=== PATIENT | female | born 1965 | race Caucasian/White ===

== ENCOUNTER 2018-09-16 17:02 | Emergency (ER) | payer OTHER ==
[~2018-09-16] VITALS: Ht 162.6 cm; Wt 120.2 kg
[~2018-09-16 17:02] MED LIST: LEVO500T59 PO; LISI2.5T PO; METF10007 PO; METF500T16 PO; OXYC1TAB15 PO
[2018-09-16 17:08] VITALS: BP 171/76
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
[2018-09-16] MEDS: HYDROcodone/APAP 5/325MG 1 TAB TABLET PO ONE (17:43)
[2018-09-16] MEDS: CYCLOBENZAPRINE 10 MG TABLET. PO ONE (17:44)
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
[2018-09-16] MEDS ORDERED: CYCL10TA2 PO (18:45)
[2018-09-16] MEDS ORDERED: DICL50TA2 PO (18:45)
== END 2018-09-16 18:52 | disposition home or self-care (01) ==
LOC: ER 17:02
DX: S13.8XXA Sprain of joints and ligaments of other parts of neck, initial encounter (principal); R51 Headache; E11.9 Type 2 diabetes mellitus without complications; F41.9 Anxiety disorder, unspecified; I10 Essential (primary) hypertension; Z90.49 Acquired absence of other specified parts of digestive tract; Z90.89 Acquired absence of other organs; Z88.5 Allergy status to narcotic agent; Z88.8 Allergy status to other drugs, medicaments and biological substances; Z91.041 Radiographic dye allergy status; V43.52XA Car driver injured in collision with other type car in traffic accident, initial encounter; Y93.89 Activity, other specified; Y92.410 Unspecified street and highway as the place of occurrence of the external cause; Y99.8 Other external cause status
CPT/HCPCS: 70450; 72125; 99284

== ENCOUNTER 2018-12-07 13:11 | Emergency (ER) | payer OTHER, SELFPAY ==
[~2018-12-07] VITALS: Ht 162.6 cm; Wt 116.1 kg
[~2018-12-07 13:11] MED LIST changes: +CYCL10TA2 PO; +DICL50TA2 PO
[2018-12-07 13:15] VITALS: BP 176/76
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
[2018-12-07] MEDS ORDERED: LIDOCAINE 1% Multi-Dose 20 ML VIAL. IJ ONE (14:00)
[2018-12-07] MEDS ORDERED: SILVER NITRATE STICK TP ONE ×3 (14:00→14:15)
[2018-12-07] MEDS ORDERED: LIDOCAINE 1% Multi-Dose 20 ML VIAL. ONE (14:03)
== END 2018-12-07 14:59 | disposition home or self-care (01) ==
LOC: ER 13:11
DX: L03.032 Cellulitis of left toe (principal); L60.0 Ingrowing nail; F41.9 Anxiety disorder, unspecified; E11.9 Type 2 diabetes mellitus without complications; I10 Essential (primary) hypertension; Z90.89 Acquired absence of other organs; Z90.49 Acquired absence of other specified parts of digestive tract; Z88.8 Allergy status to other drugs, medicaments and biological substances; Z88.5 Allergy status to narcotic agent; Z91.041 Radiographic dye allergy status
CPT/HCPCS: 11730; 82962; 99283

== ENCOUNTER 2019-06-27 16:19 | Emergency (ER) | payer SELFPAY ==
[~2019-06-27] VITALS: Ht 162.6 cm; Wt 122.5 kg
[2019-06-27] MEDS ORDERED: IPRATRPIUM/ALBUTEROL 0.5/2.5MG 3 ML NEBU. NEB STA (17:54)
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
[2019-06-27] MEDS ORDERED: IV NORMAL SALINE 1000ML BAG 1,000 ML IV ONE (18:00)
[2019-06-27] MEDS ORDERED: ONDANSETRON PF 4 MG/2 ML VIAL. IV ONE (18:00)
[2019-06-27 19:02] LABS: BASO # 0.1 x10^3/uL (0.0-0.2); BASO % 1 % (0-3); EOS # 0.1 x10^3/uL (0.0-0.7); EOS % 1 % (0-3); HEMATOCRIT 35.6 % (36.0-47.0); HEMOGLOBIN 11.5 g/dL (12.0-15.5); LYMPH # 2.9 x10^3/uL (1.0-4.8); LYMPH % 22 % (24-48); MEAN CORPUSCULAR HEMOGLOBIN 25 pg (25-35); MEAN CORPUSCULAR HGB CONC 32 g/dL (31-37); MEAN CORPUSCULAR VOLUME 77 fL (79-100); MONO # 0.6 x10^3/uL (0.0-1.1); MONO % 5 % (0-9); NEUT # 9.2 x10^3/uL (1.8-7.7); NEUT % 71 % (31-73); PLATELET COUNT 380 x10^3/uL (140-400); RED BLOOD COUNT 4.62 x10^6/uL (3.50-5.40); RED CELL DISTRIBUTION WIDTH 14.2 % (11.5-14.5); WHITE BLOOD COUNT 12.9 x10^3/uL (4.0-11.0)
[2019-06-27 19:14] LABS: CALCIUM 9.5 mg/dL (8.5-10.1); CREATININE 1.3 mg/dL (0.6-1.0)
[2019-06-27 19:20] LABS: ALBUMIN 3.3 g/dL (3.4-5.0); ALBUMIN/GLOBULIN RATIO 0.6 (1.0-1.7); TOTAL BILIRUBIN 0.3 mg/dL (0.2-1.0); TOTAL PROTEIN 8.4 g/dL (6.4-8.2)
[2019-06-27 19:31] VITALS: BP 150/78
--- NOTE | 2019-06-27 19:33 | RAD ---
CHEST PA LATERAL INDICATION: Cough, fever, congestion. COMPARISON STUDY: 10/08/2015. FINDINGS: Lungs: Low lung volume. Mild retrocardiac opacities. The tracheobronchial tree and hilar structures are normal. Pleura: No pleural effusion or pneumothorax. Heart and Mediastinum: Stable cardiomediastinal silhouette and great vessels Bones and Soft Tissues: Degenerative changes of the spine. IMPRESSION: Mild retrocardiac opacities, which could represent subsegmental atelectasis versus a developing infectious/inflammatory process. Electronically signed by: Waldemar Vasques MD (06/27/2019 7:30 PM) [facility]
[2019-06-27] MEDS ORDERED: cefTRIAXone IV Push 1 GM VIAL. IVP STA (20:10)
[2019-06-27] MEDS ORDERED: DOXY100C2 PO (20:28)
[2019-06-27] MEDS ORDERED: INSULIN REGULAR 100 UNIT/ML 3ML VIAL. IV STA (20:28)
== END 2019-06-27 21:12 | disposition left against medical advice (07) ==
LOC: ER 16:19
DX: N17.9 Acute kidney failure, unspecified (principal); E11.65 Type 2 diabetes mellitus with hyperglycemia; J18.9 Pneumonia, unspecified organism; I10 Essential (primary) hypertension; Z79.4 Long term (current) use of insulin; F41.9 Anxiety disorder, unspecified; Z90.89 Acquired absence of other organs; Z90.49 Acquired absence of other specified parts of digestive tract; Z98.890 Other specified postprocedural states; Z88.5 Allergy status to narcotic agent; Z91.041 Radiographic dye allergy status; Z88.8 Allergy status to other drugs, medicaments and biological substances
CPT/HCPCS: 36415; 71046; 80053; 82010; 82962; 84145; 85025; 94640; 96361; 96374; 96375; 99285; J0696; J1815; J2405; J7030; J7620

== ENCOUNTER 2021-06-02 07:28 | Inpatient (IN) | payer SELFPAY ==
[~2021-06-02] VITALS: Ht 162.6 cm; Wt 110.2 kg
[~2021-06-02 07:28] MED LIST changes: +CYCL10TA19 PO; -CYCL10TA2 PO; +DOXY100C3 PO; -LISI2.5T PO; +LISI2.5T12 PO
--- NOTE | 2021-06-02 08:13 | PHYS DOC ---
Past Medical History Past Medical History: Anxiety, Diabetes-Type II, Hypertension, Other Additional Past Medical Histor: HERNIA Past Surgical History: Appendectomy, Cholecystectomy, Other Additional Past Surgical Histo: R SHOULDER TUMOR REMOVAL, hernia repair Smoking Status: Never Smoker Alcohol Use: None Drug Use: None General Adult EDM: Chief Complaint: ABDOMINAL PAIN HPI: HPI: Patient is a 55 year old female with history of ventral hernia s/p multiple surgeries with mesh and mesh removal who presents with pain over her hernia site just to the left of her umbilicus. States that she began having nausea and vomiting on Thursday of this week. On Thursday, she noted that her hernia was getting to be more painful. On she noticed that the skin overlying the hernia became red. It is getting to the point that she cannot wear pants over the area, because it is too tender. She states that she began having chills last night. No urinary symptoms. Normal bowel movement last night. Last p.o. intake at 7 AM with clear liquids. Last solid intake was > 8 hours ago. Previous surgeries were done by Dr. Meyers at [facility]. Review of Systems: Review of Systems: Constitutional: Denies fever or chills. [] Eyes: Denies change in visual acuity. [] HENT: Denies nasal congestion or sore throat. [] Respiratory: Denies cough or shortness of breath. [] Cardiovascular: Denies chest pain or edema. [] GI: Ports hernia, and severe abdominal pain, nausea, vomiting. Denies bloody stools or diarrhea. [] : Denies dysuria. [] Musculoskeletal: Denies back pain or joint pain. [] Integument: Redness and swelling over her hernia. Neurologic: Denies headache, focal weakness or sensory changes. [] Endocrine: Denies polyuria or polydipsia. [] Lymphatic: Denies swollen glands. [] Psychiatric: Denies depression or anxiety. [] Heart Score: C/O Chest Pain: No Allergies: Allergies: Allergies Coded Allergies Type Severity Reaction Last Updated Verified adhesive tape Allergy Intermediate "skin bubbles up" per patient 04/18/15 Yes I S O L A T I O N *CONTACT* Allergy Unknown 04/16/16 Yes codeine Adverse Reaction Intermediate jitters 04/19/15 Yes Physical Exam: PE: Constitutional: Appears uncomfortable, wincing in pain HENT: Normocephalic, atraumatic, Eyes: conjunctiva normal, no discharge. [] Neck: Normal range of motion, no tenderness, supple, no stridor. [] Cardiovascular:Heart rate regular rhythm, no murmur [] Lungs & Thorax: Bilateral breath sounds clear to auscultation [] Abdomen: Surgical scar in the midline around the umbilicus, to the left of this is a large ventral hernia. Skin is indurated with peau d'orange orange appearance. equisitely tender locally in this area. Hernia is non-reducible after multiple attempt in Trendelenburg position. The remainder of the abdomen is nontender. Skin: See abdominal exam, otherwise warm, dry. Back: No tenderness, no CVA tenderness. [] Extremities: No tenderness, no cyanosis, no clubbing, ROM intact, no edema. [] Neurologic: Alert and oriented X 3, normal motor function, normal sensory function, no focal deficits noted. [] Psychologic: Affect normal, judgement normal, mood normal. [] EKG: EKG: [] Radiology/Procedures: Radiology/Procedures: [] Impression: [facility] [address] [place] [address] IMAGING REPORT Signed PATIENT: NOA JOSEPH ACCOUNT: [id number] : 1965 LOCATION: ER AGE: 55 SEX: F EXAM STATUS: REG ER ORD. PHYSICIAN: PAUL MANNING MD REASON: incarcerated ventral hernia PROCEDURE: CT ABD PELV W/ IV CONTRST ONLY CT abdomen pelvis with contrast. HISTORY: Incarcerated ventral hernia CT abdomen pelvis was done using 75 mL Omnipaque 370 contrast. Comparison is made with an old study from April 2015. Lung bases are clear except for mild atelectasis. There is no effusion. There is spondylolysis at L5 with spondylol isthesis. Liver is normal in appearance. Patient's had a cholecystectomy. Spleen is unremarkable. Adrenal glands are normal. Pancreas is normal. There is no mass or hydronephrosis in the left kidney. There is a large staghorn calculus in the right kidney. There are dilated calyces in the cortex of the right kidney more prominent than on the old study. There is no aortic aneurysm. There is a large anterior abdominal wall hernia containing bowel loops. There is no obstruction. There is fluid collection in the subcutaneous tissues at the margin of the hernia suggesting an abscess measuring 10 x 6 x 8 cm. Uterus is enlarged with multiple leiomyomas some which are are slightly calcified. Ovaries are unremarkable. There is no retroperitoneal adenopathy. IMPRESSION: 1. Large anterior abdominal wall hernia. 2. Subcutaneous abscess or seroma at the margin of the hernia. 3. Large uterus with leiomyoma. 4. 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 5. Large staghorn calculus with dilated calyces in the right kidney PQRS Compliance Statement: One or more of the following individualized dose reduction techniques were utilized for this examination: 1. Automated exposure control 2. Adjustment of the mA and/or kV according to patient size 3. Use of iterative reconstruction technique Electronically signed by: Jeronimo Odell MD (06/02/2021 11:29 AM) [facility] DICTATED and SIGNED BY: JERONIMO ODELL MD DATE: 06/02/21 [id number] 0 Course & Med Decision Making: Course & Med Decision Making Pertinent Labs and Imaging studies reviewed. (See chart for details) Patient 55-year-old female with history of complicated ventral hernia s/p multiple surgeries who presents with local pain of the hernia, nausea, vomiting, overlying redness and swelling of the skin. Hernia is incarcerated on exam, with overlying peau d'orange appearance of the skin. Mutiple attempts at reduction unsuccesful. Will evaluate further with CT abd/pelvis and labs including lactate. fluids, antiemetics, analgesia provided. [id number] WBC elevated[address] CT shows concern for an abscess at the margin of the ventral hernia. Given the clinical picture I think this is much more likely to represent an abscess then seroma. Zosyn ordered. General surgery will be consulted. Feel she will require mission in the hospital for IV antibiotics and surgery consultation. [id number] Disclaimer: [place] Disclaimer: This electronic medical record was generated, in whole or in part, using a voice recognition dictation system. Departure Departure Impression: Primary Impression: Abdominal abscess Additional Impression: Ventral hernia Disposition: ADMITTED INPATIENT Admitting Physician: ISIDRO Still) Condition: STABLE Referrals: NO PCP (PCP) PAUL MANNING MD Jun 02, 2021 08:13
[2021-06-02] MEDS ORDERED: MORPHINE SULFATE 4 MG/ML INJ. IVP ONE (08:15)
[2021-06-02] MEDS ORDERED: IV NORMAL SALINE 1000ML BAG 1,000 ML IV ONE (08:15)
[2021-06-02] MEDS ORDERED: ONDANSETRON PF 4 MG/2 ML VIAL. IVP ONE (08:15)
[2021-06-02 08:16] LABS: BILIRUBIN,URINE NEGATIVE (NEG); CLARITY,URINE CLOUDY; COLOR,URINE YELLOW; NITRITE,URINE NEGATIVE (NEG); PROTEIN,URINE 30 mg/dL (NEG-TRACE); UROBILINOGEN,URINE 0.2 mg/dL (0.2 mg/dL)
[2021-06-02 08:28] LABS: BASO # 0.1 x10^3/uL (0.0-0.2); BASO % 1 % (0-3); EOS # 0.1 x10^3/uL (0.0-0.7); EOS % 1 % (0-3); HEMATOCRIT 35.6 % (36.0-47.0); HEMOGLOBIN 11.5 g/dL (12.0-15.5); LYMPH # 1.7 x10^3/uL (1.0-4.8); LYMPH % 13 % (24-48); MEAN CORPUSCULAR HEMOGLOBIN 25 pg (25-35); MEAN CORPUSCULAR HGB CONC 33 g/dL (31-37); MEAN CORPUSCULAR VOLUME 77 fL (79-100); MONO # 0.9 x10^3/uL (0.0-1.1); MONO % 7 % (0-9); NEUT # 10.3 x10^3/uL (1.8-7.7); NEUT % 78 % (31-73); PLATELET COUNT 422 x10^3/uL (140-400); WHITE BLOOD COUNT 13.2 x10^3/uL (4.0-11.0)
[2021-06-02 08:36] LABS: BACTERIA,URINE MOD /HPF (0-FEW)
[2021-06-02 08:38] LABS: YEAST,URINE PRESENT /HPF
[2021-06-02 08:40] LABS: CALCIUM 8.8 mg/dL (8.5-10.1); CREATININE 0.9 mg/dL (0.6-1.0); GFR 65.2; POTASSIUM 4.1 mmol/L (3.5-5.1)
[2021-06-02 08:54] LABS: ALBUMIN 2.2 g/dL (3.4-5.0); ALBUMIN/GLOBULIN RATIO 0.4 (1.0-1.7); TOTAL BILIRUBIN 0.4 mg/dL (0.2-1.0); TOTAL PROTEIN 7.1 g/dL (6.4-8.2)
[2021-06-02] MEDS ORDERED: IOHEXOL 300 MG/ML 100ML VIAL. IV ONE (10:45)
--- NOTE | 2021-06-02 11:32 | RAD ---
CT abdomen pelvis with contrast. HISTORY: Incarcerated ventral hernia CT abdomen pelvis was done using 75 mL Omnipaque 370 contrast. Comparison is made with an old study f rom April 2015. Lung bases are clear except for mild atelectasis. There is no effusion. There is spondylolysis at L5 with spondylolisthesis. Liver is normal in appearance. Patient's had a cholecyste ctomy. Spleen is unremarkable. Adrenal glands are normal. Pancreas is normal. There is no mass or hyd ronephrosis in the left kidney. There is a large staghorn calculus in the right kidney. There are dil ated calyces in the cortex of the right kidney more prominent than on the old study. There is no aort ic aneurysm. There is a large anterior abdominal wall hernia containing bowel loops. There is no obst ruction. There is fluid collection in the subcutaneous tissues at the margin of the hernia suggesting an abscess measuring 10 x 6 x 8 cm. Uterus is enlarged with multiple leiomyomas some which are are s lightly calcified. Ovaries are unremarkable. There is no retroperitoneal adenopathy. IMPRESSION: 1. Large anterior abdominal wall hernia. 2. Subcutaneous abscess or seroma at the margin of the hernia. 3. Large uterus with leiomyoma. 4. 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 5. Large staghorn calculus with dilated calyces in the right kidney PQRS Compliance Statement: One or more of the following individualized dose reduction techniques were utilized for this examinat ion: 1. Automated exposure control 2. Adjustment of the mA and/or kV according to patient size 3. Use of iterative reconstruction technique Electronically signed by: Jeronimo Odell MD (06/02/2021 11:29 AM) [facility]
[2021-06-02] MEDS ORDERED: PIPERACILLIN/TAZOBACTAM 4.5 GM in IV NORMAL SALINE 100ML 100 ML IV ONE (12:00)
[2021-06-02] MEDS ORDERED: ONDANSETRON PF 4 MG/2 ML VIAL. IVP PRN ×2 (12:15→13:30)
[2021-06-02] MEDS ORDERED: MORPHINE SULFATE 4 MG/ML INJ. IVP PRN (12:15)
[2021-06-02] MEDS ORDERED: ZOLPIDEM 5 MG TABLET. PO PRN (13:30)
[2021-06-02] MEDS ORDERED: oxyCODONE/APAP 5/325 1 TAB TABLET PO PRN (13:30)
[2021-06-02] MEDS ORDERED: oxyCODONE IR 5 MG TABLET PO PRN (13:30)
[2021-06-02] MEDS ORDERED: ELECTROLYTE (NON-ICU) PROTOCOL. MC PRN (13:30)
[2021-06-02] MEDS ORDERED: PIP/TAZO PER PHARMACY MC PRN (13:30)
[2021-06-02] MEDS ORDERED: ACETAMINOPHEN 325 MG TABLET. PO PRN (13:30)
[2021-06-02] MEDS ORDERED: CALCIUM CARBONATE 500 MG TAB.CHEW PO PRN (13:30)
[2021-06-02] MEDS ORDERED: DEXTROSE 50% 25 GM / 50ML DISP.SYRIN. IV PRN (13:45)
--- NOTE | 2021-06-02 13:47 | PDOC1 ---
History and Physical Date of Service: DOS: DATE: 06/02/21 TIME: 13:36 Chief Complaint: Problems: (1) Abdominal abscess (2) Ventral hernia Chief Complain: abdominal pain History of Present Illness: HPI: This patient is a 55-year-old female presented the emergency room today due to pain over her previous hernia surgical site. Reports that she started having increased nausea vomiting earlier this week. Also noticed that her hernia site was getting more painful and on the skin started becoming red. Is also gotten much more swollen according to her. Says she is unable to button her jeans due to the swelling. Patient had an initial cholecystectomy and hernia repair many years ago here looks like it may have been in 2015. She said she had multiple hernia surgeries that required mesh. Has had a handful done at according to her. Says last one was about 3 years ago where the mesh was completely removed. Has had no problems with the site until today. CT scan showing a large abdominal wall hernia. Also underlying abscess versus seroma. Surgery consulted in emergency room. Past Medical/Surgical History: PMH/PSH: Hypertension, diabetes Allergies: Allergies: Coded Allergies: adhesive tape (Verified Allergy, Intermediate, "skin bubbles up" per patient, 04/18/15) I S O L A T I O N *CONTACT* (Verified Allergy, Unknown, 04/16/16) mrsa + codeine (Verified Adverse Reaction, Intermediate, jitters, 04/19/15) Family History: Family History: Patient reports family history diabetes Social History: Social History: Denies alcohol tobacco drug use Current Medications: Current Medications Current Medications Sodium Chloride 1,000 ml @ 1,000 mls/hr 1X ONCE IV Last administered on 1 at 08:57; Start 06/02/21 at 08:15; Stop 06/02/21 at 09:14; Status DC Morphine Sulfate (Morphine Sulfate) 4 mg 1X ONCE IVP Last administered on 06/02/21at 08:57; Start 06/02/21 at 08:15; Stop 06/02/21 at 08:16; Status DC Ondansetron HCl (Zofran) 4 mg 1X ONCE IVP Last administered on 06/02/21at 08:57; Start 06/02/21 at 08:15; Stop 06/02/21 at 08:16; Status DC Iohexol (Omnipaque 300 Mg/ml) 75 ml 1X ONCE IV Last administered on 06/02/21at 10:45; Start 06/02/21 at 10:45; Stop 06/02/21 at 10:48; Status DC Piperacillin Sod/ Tazobactam Sod 4.5 gm/Sodium Chloride 100 ml @ 200 mls/hr 1X ONCE IV Last administered on 06/02/21at 12:08; Start 06/02/21 at 12:00; Stop 06/02/21 at 12:29; Status DC Ondansetron HCl (Zofran) 4 mg PRN Q8HRS PRN IVP NAUSEA/VOMITING; Start 06/02/21 at 12:15; Stop 06/03/21 at 12:14 Morphine Sulfate (Morphine Sulfate) 4 mg PRN Q2HR PRN IVP PAIN; Start 06/02/21 at 12:15; Stop 06/03/21 at 12:14 Active Scripts Active Doxycycline Hyclate 100 Mg Capsule 1 Cap PO BID 10 Days Cyclobenzaprine Hcl 10 Mg Tablet 1 Tab PO TID Diclofenac Potassium 50 Mg Tablet 1 Tab PO BID Metformin Hcl 1,000 Mg Tablet 1 Tab PO BID Reported Levaquin (Levofloxacin) 500 Mg Tablet 1 Tab PO DAILY Lisinopril 2.5 Mg Tablet 1 Tab PO DAILY ROS: Review of Systems Review of System Unless noted in HPI 14 point review of systems was negative Physical Exam: Vital Signs: Vital Signs Date Time Temp Pulse Resp B/P (MAP) Pulse Ox O2 Delivery O2 Flow Rate FiO2 06/02/21 12:44 82 22 129/60 (83) 97 Room Air 06/02/21 07:50 98.5 98.5 Physcial Exam: GEN: No apparent distress. Alert and oriented HEENT: Normal cephalic, atraumatic, external auditory canals are patent EYES: Extraocular muscles are intact, pupil are equally round and reactive to light and accommodation MUSCULOSKELETAL: Well developed , well nourished, good range of motion ENDOCRINE: No thyromegaly was palpated LYMPHATICS: No cervical chain or axillary nodes were noted HEMATOPOIETIC: No bruising NECK: Supple, no JVD, no thyromegaly was noted LUNGS: Clear to auscultation in all lung alcazar without rhonchi or wheezing HEART: RRR, S1, S2 present. Peripheral pulses intact, no obvious murmurs noted ABDOMEN: Patient abdomen and very hard around umbilicus suspect this is scar tissue. There is also some erythema overlying where she is previous operation was performed. Tender to palpation throughout EXTREMITIES: Without clubbing, cyanosis, or edema. Pedal pulses intact. NEUROLOGIC: Normal speech and tone. A&O x 3, moves all extremities, no obvious focal deficits PSYCHIATRIC: Normal affect, normal mood. Stable SKIN: No ulcerations or rashes, good skin turgor, no jaundice VASCULAR: Good capillary refill, neurovascular bundle appears to be intact Labs: Labs: Laboratory Tests Test 06/02/21 07:50 06/02/21 08:16 Urine Collection Type Void Urine Color Yellow Urine Clarity Cloudy Urine pH 5.0 (<5.0-8.0) Urine Specific [place] >=1.030 (1.000-1.030) Urine Protein 30 mg/dL (NEG-TRACE) Urine Glucose (UA) >=1000 mg/dL (NEG) Urine Ketones (Stick) Negative mg/dL (NEG) Urine Blood Large (NEG) Urine Nitrite Negative (NEG) Urine Bilirubin Negative (NEG) Urine Urobilinogen Dipstick 0.2 mg/dL (0.2 mg/dL) Urine Leukocyte Esterase Moderate (NEG) Urine RBC 6-10 /HPF (0-2) Urine WBC 11-20 /HPF (0-4) Urine Squamous Epithelial Cells Mod /LPF Urine Bacteria Mod /HPF (0-FEW) Urine Yeast Present /HPF White Blood Count 13.2 x10^3/uL (4.0-11.0) Red Blood Count 4.60 x10^6/uL (3.50-5.40) Hemoglobin 11.5 g/dL (12.0-15.5) Hematocrit 35.6 % (36.0-47.0) Mean Corpuscular Volume 77 fL (79-100) Mean Corpuscular Hemoglobin 25 pg (25-35) Mean Corpuscular Hemoglobin Concent 33 g/dL (31-37) Red Cell Distribution Width 15.0 % (11.5-14.5) Platelet Count 422 x10^3/uL (140-400) Neutrophils (%) (Auto) 78 % (31-73) Lymphocytes (%) (Auto) 13 % (24-48) Monocytes (%) (Auto) 7 % (0-9) Eosinophils (%) (Auto) 1 % (0-3) Basophils (%) (Auto) 1 % (0-3) Neutrophils # (Auto) 10.3 x10^3/uL (1.8-7.7) Lymphocytes # (Auto) 1.7 x10^3/uL (1.0-4.8) Monocytes # (Auto) 0.9 x10^3/uL (0.0-1.1) Eosinophils # (Auto) 0.1 x10^3/uL (0.0-0.7) Basophils # (Auto) 0.1 x10^3/uL (0.0-0.2) Sodium Level 130 mmol/L (136-145) Potassium Level 4.1 mmol/L (3.5-5.1) Chloride Level 95 mmol/L (98-107) Carbon Dioxide Level 25 mmol/L (21-32) Anion Gap 10 (6-14) Blood Urea Nitrogen 16 mg/dL (7-20) Creatinine 0.9 mg/dL (0.6-1.0) Estimated GFR (Cockcroft-Gault) 65.2 BUN/Creatinine Ratio 18 (6-20) Glucose Level 435 mg/dL (70-99) Lactic Acid Level 1.2 mmol/L (0.4-2.0) Calcium Level 8.8 mg/dL (8.5-10.1) Total Bilirubin 0.4 mg/dL (0.2-1.0) Aspartate Amino Transf (AST/SGOT) 13 U/L (15-37) Alanine Aminotransferase (ALT/SGPT) 21 U/L (14-59) Alkaline Phosphatase 121 U/L (46-116) Total Protein 7.1 g/dL (6.4-8.2) Albumin 2.2 g/dL (3.4-5.0) Albumin/Globulin Ratio 0.4 (1.0-1.7) Laboratory Tests Test 06/02/21 07:50 06/02/21 08:16 Urine Collection Type Void Urine Color Yellow Urine Clarity Cloudy Urine pH 5.0 (<5.0-8.0) Urine Specific [place] >=1.030 (1.000-1.030) Urine Protein 30 mg/dL (NEG-TRACE) Urine Glucose (UA) >=1000 mg/dL (NEG) Urine Ketones (Stick) Negative mg/dL (NEG) Urine Blood Large (NEG) Urine Nitrite Negative (NEG) Urine Bilirubin Negative (NEG) Urine Urobilinogen Dipstick 0.2 mg/dL (0.2 mg/dL) Urine Leukocyte Esterase Moderate (NEG) Urine RBC 6-10 /HPF (0-2) Urine WBC 11-20 /HPF (0-4) Urine Squamous Epithelial Cells Mod /LPF Urine Bacteria Mod /HPF (0-FEW) Urine Yeast Present /HPF White Blood Count 13.2 x10^3/uL (4.0-11.0) Red Blood Count 4.60 x10^6/uL (3.50-5.40) Hemoglobin 11.5 g/dL (12.0-15.5) Hematocrit 35.6 % (36.0-47.0) Mean Corpuscular Volume 77 fL (79-100) Mean Corpuscular Hemoglobin 25 pg (25-35) Mean Corpuscular Hemoglobin Concent 33 g/dL (31-37) Red Cell Distribution Width 15.0 % (11.5-14.5) Platelet Count 422 x10^3/uL (140-400) Neutrophils (%) (Auto) 78 % (31-73) Lymphocytes (%) (Auto) 13 % (24-48) Monocytes (%) (Auto) 7 % (0-9) Eosinophils (%) (Auto) 1 % (0-3) Basophils (%) (Auto) 1 % (0-3) Neutrophils # (Auto) 10.3 x10^3/uL (1.8-7.7) Lymphocytes # (Auto) 1.7 x10^3/uL (1.0-4.8) Monocytes # (Auto) 0.9 x10^3/uL (0.0-1.1) Eosinophils # (Auto) 0.1 x10^3/uL (0.0-0.7) Basophils # (Auto) 0.1 x10^3/uL (0.0-0.2) Sodium Level 130 mmol/L (136-145) Potassium Level 4.1 mmol/L (3.5-5.1) Chloride Level 95 mmol/L (98-107) Carbon Dioxide Level 25 mmol/L (21-32) Anion Gap 10 (6-14) Blood Urea Nitrogen 16 mg/dL (7-20) Creatinine 0.9 mg/dL (0.6-1.0) Estimated GFR (Cockcroft-Gault) 65.2 BUN/Creatinine Ratio 18 (6-20) Glucose Level 435 mg/dL (70-99) Lactic Acid Level 1.2 mmol/L (0.4-2.0) Calcium Level 8.8 mg/dL (8.5-10.1) Total Bilirubin 0.4 mg/dL (0.2-1.0) Aspartate Amino Transf (AST/SGOT) 13 U/L (15-37) Alanine Aminotransferase (ALT/SGPT) 21 U/L (14-59) Alkaline Phosphatase 121 U/L (46-116) Total Protein 7.1 g/dL (6.4-8.2) Albumin 2.2 g/dL (3.4-5.0) Albumin/Globulin Ratio 0.4 (1.0-1.7) Assessment/Plan Assessment/Plan Ventral hernia, abdominal wall abscess versus seroma history hypertension diabetes, urinary tract infection -Patient reporting about a week of abdominal pain at previous surgical site. Has had multiple surgeries for hernia repairs with mesh placements. Says she currently does not have any mesh in place. -CT scan emergency room showing a large hernia with possible abscess underlying -Received Zosyn in emergency room. Will continue Zosyn for intra-abdominal coverage for now -Also possible UTI on UA Zosyn will cover this -Surgery consulted. -Keep n.p.o. for now and hold DVT prophylaxis until evaluated by surgery if no surgical intervention today can start heparin 5000 every 8 and start diet -Home meds resumed as indicated I spent 20 minutes discussing advance care planning with patient was remain full code and will pursue any recommended surgical invention. Justifications for Admission Other Justification RAHEEM SIMEON MD Jun 02, 2021 13:47
[2021-06-02] MEDS ORDERED: CYCLOBENZAPRINE 10 MG TABLET. PO SCH (14:00)
[2021-06-02] MEDS ORDERED: LISINOPRIL 5 MG TABLET. PO SCH (14:00)
[2021-06-02 15:00] VITALS: BP 130/56
[2021-06-02] MEDS ORDERED: SITA1TAB11 PO (15:25)
[2021-06-02] MEDS ORDERED: GLIM4TAB8 PO (15:25)
[2021-06-02] MEDS: INSULIN LISPRO 300 UNITS/3 ML VIAL. SQ SCH ×2 (15:50→17:33)
[2021-06-02] MEDS: oxyCODONE/APAP 5/325 1 TAB TABLET PO PRN (16:48)
[2021-06-02] MEDS: PIPERACILLIN/TAZOBACTAM 4.5 GM in IV NORMAL SALINE 100ML 100 ML IV SCH (17:26)
[2021-06-02 19:00] VITALS: BP 128/59
[2021-06-02] MEDS ORDERED: INSULIN GLARGINE SYRINGE. SQ SCH (21:00)
[2021-06-02] MEDS: SENNOSIDES/DOCUSATE 8.6/50MG TABLET. PO SCH (21:00)
[2021-06-02 23:00] VITALS: BP 126/50
[2021-06-03] MEDS: PIPERACILLIN/TAZOBACTAM 4.5 GM in IV NORMAL SALINE 100ML 100 ML IV SCH ×3 (00:27→12:52)
[2021-06-03] MEDS: oxyCODONE/APAP 5/325 1 TAB TABLET PO PRN (01:19)
[2021-06-03 03:00] VITALS: BP 122/59
[2021-06-03 07:00] VITALS: BP 111/53
[2021-06-03] MEDS: SENNOSIDES/DOCUSATE 8.6/50MG TABLET. PO SCH (08:36)
[2021-06-03] MEDS: INSULIN LISPRO 300 UNITS/3 ML VIAL. SQ SCH ×2 (08:41→12:59)
[2021-06-03] MEDS ORDERED: LIDOCAINE WITH 8.4% SOD BICARB 3 ML DISP.SYRIN. ONE (10:02)
[2021-06-03 10:40] VITALS: BP 112/61
[2021-06-03 10:48] VITALS: BP 120/56
--- NOTE | 2021-06-03 10:50 | NUR ---
Pt to IR for possible drain placement, not needed at this time per Dr Gupta. clean dry dressing in place to L mid abdomen. Spoke to Dodie KING on [facility] with update. AVNI KING
[2021-06-03 11:00] VITALS: BP 122/61
--- NOTE | 2021-06-03 13:29 | RAD ---
CT-guided aspiration, anterior abdominal wall fluid collection 06/03/2021 Consent: The procedure was explained in its entirety to the patient or the patients designated repres entative by a member of the treatment team, including a discussion of the risks, benefits and commonl y accepted alternatives to the procedure, as well as the expected consequences of no therapy whatsoev er. Discussion of the risks included, but was not limited to, those that are most frequent and thos e that are rare but possibly severe or life-threatening, as well as the possibility of unforeseen com plications. Patient was found to have a abdominal wall fluid collection with an associated ventral hernia. This i s best imaged on CT of the abdomen and pelvis from June 02, 2021. [facility]. However, on questioning the patient had spontaneous drainage of the collection from a wound in the anterior abdominal wall. CT imaging was repeated without contr ast demonstrating only a small amount of residual fluid, with prominent fat stranding. The anterior a bdomen was prepped and draped using sterile barrier technique. A 5 [place] catheter was advanced throu gh the leaking wound, which resulted in spontaneous drainage of an estimated 10 cc of bloody and puru lent material. This occurred around the catheter. Aspiration of the catheter did not yielded no addit ional fluid. A guidewire was advanced into the collection and found to remain relatively focal. IMPRESSION: Apparent significant spontaneous decompression of the previously seen abdominal fluid col lection without significant residual cavity at the time of procedure. No drain was left in place. CT DOSING PQRS STATEMENT: One or more of the following individualized dose reduction techniques were utilized for this examinat ion: 1. Automated exposure control 2. Adjustment of the mA and/or kV according to patient size 3. Use of iterative reconstruction technique Electronically signed by: Jerome Gupta MD (06/03/2021 1:26 PM) [id number]
--- NOTE | 2021-06-03 13:43 | PDOC2 ---
CONSULT Date of Consult Date of Consult DATE: 06/03/21 TIME: 13:38 Reason for Consult Reason for Consult: abd abscess Referring Physician Referring Physician: ER Identification/Chief Complaint Chief Complaint abdominal pain Source Source: Chart review, Patient History of Present Illness Reason for Visit: Long standing hx of abdominal hernias, repairs, infection, mesh removal Reports about a week of increased pain, swelling, redness to abdomen Started draining last night, IR eval--no fluid collection currently Wants to discharge no later than tomorrow -cares for Past Medical History Cardiovascular: HTN Endocrine: Diabetes Past Surgical History Past Surgical History: Appendectomy, Cholecystectomy, Hernia Repair Family History Family History: Other (noncontributory to current illness ) Social History No ALCOHOL: rare Drugs: None Current Problem List Problem List Problems Medical Problems: (1) Abdominal abscess Status: Acute (2) Ventral hernia Status: Acute Current Medications Current Medications Current Medications Sodium Chloride 1,000 ml @ 1,000 mls/hr 1X ONCE IV Last administered on 06/02/21at 08:57; Start 06/02/21 at 08:15; Stop 06/02/21 at 09:14; Status DC Morphine Sulfate (Morphine Sulfate) 4 mg 1X ONCE IVP Last administered on 06/02/21at 08:57; Start 06/02/21 at 08:15; Stop 06/02/21 at 08:16; Status DC Ondansetron HCl (Zofran) 4 mg 1X ONCE IVP Last administered on 06/02/21at 08:57; Start 06/02/21 at 08:15; Stop 06/02/21 at 08:16; Status DC Iohexol (Omnipaque 300 Mg/ml) 75 ml 1X ONCE IV Last administered on 06/02/21at 10:45; Start 06/02/21 at 10:45; Stop 06/02/21 at 10:48; Status DC Piperacillin Sod/ Tazobactam Sod 4.5 gm/Sodium Chloride 100 ml @ 200 mls/hr 1X ONCE IV Last administered on 06/02/21at 12:08; Start 06/02/21 at 12:00; Stop 06/02/21 at 12:29; Status DC Ondansetron HCl (Zofran) 4 mg PRN Q8HRS PRN IVP NAUSEA/VOMITING; Start 06/02/21 at 12:15; Stop 06/02/21 at 13:28; Status DC Morphine Sulfate (Morphine Sulfate) 4 mg PRN Q2HR PRN IVP PAIN; Start 06/02/21 at 12:15; Stop 06/03/21 at 12:14; Status DC Cyclobenzaprine HCl (Flexeril) 10 mg TID PO ; Start 06/02/21 at 14:00; Stop 06/02/21 at 15:21; Status DC Lisinopril (Prinivil) 2.5 mg DAILY PO ; Start 06/02/21 at 14:00; Stop 06/02/21 at 15:21; Status DC Piperacillin Sod/ Tazobactam Sod (Zosyn Per Pharmacy) 1 each PRN DAILY PRN MC SEE COMMENTS; Start 06/02/21 at 13:30 Ondansetron HCl (Zofran) 4 mg PRN Q6HRS PRN IVP NAUSEA/VOMITING; Start 06/02/21 at 13:30 Calcium Carbonate/ Glycine (Tums) 500 mg PRN Q3HRS PRN PO UPSET STOMACH; Start 06/02/21 at 13:30 Zolpidem Tartrate (Ambien) 5 mg PRN QHS PRN PO INSOMNIA, MAY REPEAT IN 1HR; Start 06/02/21 at 13:30 Info (Non-Icu Electrolyte Protocol) 1 ea PRN DAILY PRN MC SEE COMMENTS; Start 06/02/21 at 13:30 Oxycodone HCl (Roxicodone) 5 mg PRN Q3HRS PRN PO BREAKTHROUGH PAIN; Start 06/02/21 at 13:30 Oxycodone/ Acetaminophen (Percocet 5/325) 1 tab PRN Q4HRS PRN PO MILD PAIN, 1ST CHOICE Last administered on 06/03/21at 01:19; Start 06/02/21 at 13:30 Oxycodone/ Acetaminophen (Percocet 5/325) 2 tab PRN Q4HRS PRN PO MODERATE PAIN, SEVERE PAIN; Start 06/02/21 at 13:30 Acetaminophen (Tylenol) 650 mg PRN Q6HRS PRN PO Headaches, Temp > 101.5F; Start 06/02/21 at 13:30 Senna/Docusate Sodium (Senna Plus) 1 tab BID PO ; Start 06/02/21 at 21:00 Piperacillin Sod/ Tazobactam Sod 4.5 gm/Sodium Chloride 100 ml @ 200 mls/hr Q6HRS IV Last administered on 06/03/21at 12:52; Start 06/02/21 at 18:00 Insulin Glargine (Lantus Syringe) 10 unit QHS SQ Last administered on 06/02/21at 21:46; Start 06/02/21 at 21:00; Stop 06/03/21 at 08:09; Status DC Insulin Human Lispro (HumaLOG) 0-7 UNITS TIDWMEALS SQ Last administered on 06/03/21at 12:59; Start 06/02/21 at 13:00 Dextrose (Dextrose 50%-Water Syringe) 12.5 gm PRN Q15MIN PRN IV SEE COMMENTS; Start 06/02/21 at 13:45 Insulin Glargine (Lantus Syringe) 25 unit QHS SQ ; Start 06/03/21 at 21:00 Lidocaine HCl (Buffered Lidocaine 1%) 3 ml STK-MED ONCE .ROUTE ; Start 06/03/21 at 10:02; Stop 06/03/21 at 10:02; Status DC Lactobacillus Rhamnosus (Culturelle) 1 cap BID PO ; Start 06/03/21 at 21:00 Active Scripts Active Doxycycline Hyclate 100 Mg Capsule 1 Cap PO BID 10 Days Cyclobenzaprine Hcl 10 Mg Tablet 1 Tab PO TID Diclofenac Potassium 50 Mg Tablet 1 Tab PO BID Metformin Hcl 1,000 Mg Tablet 1 Tab PO BID Reported Janumet 50-1,000 Mg Tablet (Sitagliptin Phos/Metformin Hcl) 1 Each Tablet 1 Tab PO BID Glimepiride 4 Mg Tablet 4 Mg PO DAILY Levaquin (Levofloxacin) 500 Mg Tablet 1 Tab PO DAILY Lisinopril 2.5 Mg Tablet 1 Tab PO DAILY Allergies Allergies: Coded Allergies: adhesive tape (Verified Allergy, Intermediate, "skin bubbles up" per patient, 04/18/15) I S O L A T I O N *CONTACT* (Verified Allergy, Unknown, 04/16/16) mrsa + codeine (Verified Adverse Reaction, Intermediate, jitters, 04/19/15) ROS General: No: Chills, Appetite (loss) PSYCHOLOGICAL ROS: No: Anxiety, Depression Eyes: No Blurry vision, No Double vision HEENT: No: Heacaches, Sore Throat Hematological and Lymphatic: No: Bleeding Problems, Blood Clots Respiratory: No: Cough, Shortness of breath Cardiovascular: No Chest Pain, No Palpitations Gastrointestinal: No Other (see hpi) Genitourinary: No Dysuria, No Hematuria Musculoskeletal: No Joint Pain, No Muscle Pain Neurological: No Impaired Coord/balance, No Numbness/Tingling Skin: Yes Other (see hpi) Physical Exam General: Alert, Oriented X3, Cooperative HEENT: Atraumatic, PERRLA Lungs: Clear to auscultation, Normal air movement Heart: Regular rate, Normal S1, Normal S2 Abdomen: Soft, Other (umbilical area with erythema, induration) Extremities: No clubbing, No cyanosis Skin: No rashes, No breakdown Neuro: Normal speech, Sensation intact Psych/Mental Status: Mental status NL, Mood NL MUSCULOSKELETAL: No deformity, No swelling Vitals VITALS Vital Signs Date Time Temp Pulse Resp B/P (MAP) Pulse Ox O2 Delivery O2 Flow Rate FiO2 06/03/21 11:00 97.9 80 18 122/61 (81) 97 Room Air 97.9 06/03/21 10:48 3.0 Labs Labs Laboratory Tests Test 06/02/21 07:50 06/02/21 08:16 06/02/21 15:45 06/02/21 16:54 Urine Collection Type Void Urine Color Yellow Urine Clarity Cloudy Urine pH 5.0 (<5.0-8.0) Urine Specific [place] >=1.030 (1.000-1.030) Urine Protein 30 mg/dL (NEG-TRACE) Urine Glucose (UA) >=1000 mg/dL (NEG) Urine Ketones (Stick) Negative mg/dL (NEG) Urine Blood Large (NEG) Urine Nitrite Negative (NEG) Urine Bilirubin Negative (NEG) Urine Urobilinogen Dipstick 0.2 mg/dL (0.2 mg/dL) Urine Leukocyte Esterase Moderate (NEG) Urine RBC 6-10 /HPF (0-2) Urine WBC 11-20 /HPF (0-4) Urine Squamous Epithelial Cells Mod /LPF Urine Bacteria Mod /HPF (0-FEW) Urine Yeast Present /HPF White Blood Count 13.2 x10^3/uL (4.0-11.0) Red Blood Count 4.60 x10^6/uL (3.50-5.40) Hemoglobin 11.5 g/dL (12.0-15.5) Hematocrit 35.6 % (36.0-47.0) Mean Corpuscular Volume 77 fL (79-100) Mean Corpuscular Hemoglobin 25 pg (25-35) Mean Corpuscular Hemoglobin Concent 33 g/dL (31-37) Red Cell Distribution Width 15.0 % (11.5-14.5) Platelet Count 422 x10^3/uL (140-400) Neutrophils (%) (Auto) 78 % (31-73) Lymphocytes (%) (Auto) 13 % (24-48) Monocytes (%) (Auto) 7 % (0-9) Eosinophils (%) (Auto) 1 % (0-3) Basophils (%) (Auto) 1 % (0-3) Neutrophils # (Auto) 10.3 x10^3/uL (1.8-7.7) Lymphocytes # (Auto) 1.7 x10^3/uL (1.0-4.8) Monocytes # (Auto) 0.9 x10^3/uL (0.0-1.1) Eosinophils # (Auto) 0.1 x10^3/uL (0.0-0.7) Basophils # (Auto) 0.1 x10^3/uL (0.0-0.2) Sodium Level 130 mmol/L (136-145) Potassium Level 4.1 mmol/L (3.5-5.1) Chloride Level 95 mmol/L (98-107) Carbon Dioxide Level 25 mmol/L (21-32) Anion Gap 10 (6-14) Blood Urea Nitrogen 16 mg/dL (7-20) Creatinine 0.9 mg/dL (0.6-1.0) Estimated GFR (Cockcroft-Gault) 65.2 BUN/Creatinine Ratio 18 (6-20) Glucose Level 435 mg/dL (70-99) Lactic Acid Level 1.2 mmol/L (0.4-2.0) Calcium Level 8.8 mg/dL (8.5-10.1) Total Bilirubin 0.4 mg/dL (0.2-1.0) Aspartate Amino Transf (AST/SGOT) 13 U/L (15-37) Alanine Aminotransferase (ALT/SGPT) 21 U/L (14-59) Alkaline Phosphatase 121 U/L (46-116) Total Protein 7.1 g/dL (6.4-8.2) Albumin 2.2 g/dL (3.4-5.0) Albumin/Globulin Ratio 0.4 (1.0-1.7) Glucose (Fingerstick) 379 mg/dL (70-99) 383 mg/dL (70-99) Test 06/02/21 21:20 06/03/21 07:24 06/03/21 12:06 Glucose (Fingerstick) 382 mg/dL (70-99) 338 mg/dL (70-99) 296 mg/dL (70-99) Laboratory Tests Test 06/02/21 15:45 06/02/21 16:54 06/02/21 21:20 06/03/21 07:24 Glucose (Fingerstick) 379 mg/dL (70-99) 383 mg/dL (70-99) 382 mg/dL (70-99) 338 mg/dL (70-99) Test 06/03/21 12:06 Glucose (Fingerstick) 296 mg/dL (70-99) Assessment/Plan Assessment/Plan abscess, drained will ask ID to eval for abx, multiple issues in past with infection, mesh removal no surgical needs SASHA [employer]AN [employer] Jun 03, 2021 13:43
--- NOTE | 2021-06-03 14:02 | PDOC ---
[employer] PROGRESS NOTE Date of Service DOS: DATE: 06/03/21 TIME: 13:56 Chief Complaint Chief Complaint Ventral hernia Abdominal wall abscess vs. seroma HTN DM2 UTI Plan: -Patient reporting about a week of abdominal pain at previous surgical site. Has had multiple surgeries for hernia repairs with mesh placements. Says she currently does not have any mesh in place. -CT scan emergency room showing a large hernia with possible abscess underlying -Received Zosyn in emergency room. Will continue Zosyn for intra-abdominal coverage for now -Also possible UTI on UA Zosyn will cover this -Surgery consulted. -Keep n.p.o. for now and hold DVT prophylaxis until evaluated by surgery if no surgical intervention today can start heparin 5000 every 8 and start diet -Home meds resumed as indicated History of Present Illness History of Present Illness This patient is a 55-year-old female presented the emergency room today due to pain over her previous hernia surgical site. Reports that she started having increased nausea vomiting earlier this week. Also noticed that her hernia site was getting more painful and on the skin started becoming red. Is also gotten much more swollen according to her. Says she is unable to button her jeans due to the swelling. Patient had an initial cholecystectomy and hernia repair many years ago here looks like it may have been in 2015. She said she had multiple hernia surgeries that required mesh. Has had a handful done at according to her. Says last one was about 3 years ago where the mesh was completely removed. Has had no problems with the site until today. CT scan showing a large abdominal wall hernia. Also underlying abscess versus seroma. Surgery consulted in emergency room. 06/03: Afebrile, still with abdominal pain that is controlled with medication. Per IR, she apparently had spontaneous decompression of the previously seen abdominal fluid collection without significant residual cavity at the time of procedure several no drain was left in place. Continue IV antibiotics. Given history of complicated infection with this prior mesh surgery, I believe ID has been consulted. 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 Discussed the risks of leaving AMA, including worsening pain, worsening infection, possible sepsis, which could lead to possible ; patient is ANO x3 and understands my concerns but at this time it is still wished to leave AGAINST MEDICAL ADVICE. Vitals/I&O Vitals/I&O: Vital Signs Date Time Temp Pulse Resp B/P (MAP) Pulse Ox O2 Delivery O2 Flow Rate FiO2 06/03/21 11:00 97.9 80 18 122/61 (81) 97 Room Air 97.9 06/03/21 10:48 3.0 I & O 06/02/21 06/02/21 06/03/21 15:00 23:00 07:00 Intake Total 100 ml 400 ml Balance 100 ml 400 ml Physical Exam General: Alert, Oriented X3, Cooperative Heart: Regular rate, Normal S1, Normal S2 Abdomen: Soft, Other (umbilical area with mild erythema, left lower quadrant induration) Extremities: No clubbing, No cyanosis Skin: No rashes, No breakdown Labs Labs: Laboratory Tests Test 06/02/21 15:45 06/02/21 16:54 06/02/21 21:20 06/03/21 07:24 Glucose (Fingerstick) 379 mg/dL (70-99) 383 mg/dL (70-99) 382 mg/dL (70-99) 338 mg/dL (70-99) Test 06/03/21 12:06 Glucose (Fingerstick) 296 mg/dL (70-99) Assessment and Plan Assessmemt and Plan Problems Medical Problems: (1) Abdominal abscess Status: Acute (2) Ventral hernia Status: Acute Comment Review of Relevant I have reviewed the following items td (where applicable) has been applied. Medications: Current Medications Medications (Trade) Dose Ordered Sig/James Route PRN Reason Start Time Stop Time Status Last Admin Dose Admin Piperacillin Sod/ Tazobactam Sod 4.5 gm/Sodium Chloride 100 ml @ 200 mls/hr Q6HRS IV 06/02/21 18:00 06/03/21 12:52 Insulin Glargine (Lantus Syringe) 10 unit QHS SQ 06/02/21 21:00 06/03/21 08:09 DC 06/02/21 21:46 Justifications for Admission Other Justification KARLOS ZAMAN MD Jun 03, 2021 14:02
--- NOTE | 2021-06-03 15:08 | NUR ---
Pt leaving AMA. Informed patient that leaving AMA, without medication, could cause infection to worsen and she could become very ill. I informed pt that she could speak with a medical social worker to try and find assistance to help her financially with medications. After speaking with pt, she still wanted to leave against medical advice. AMA form was signed. Pt's came to pick her up. Pt left hospital in wheelchair with director of security.
--- NOTE | 2021-06-03 17:59 | PDOC3 ---
Discharge Summary Visit Information Date of Admission: Jun 02, 2021 Date of Discharge: Jun 03, 2021 Final Diagnosis Problems Medical Problems: (1) Abdominal abscess Status: Acute (2) Ventral hernia Status: Acute Brief Hospital Course Allergies Allergies Coded Allergies Type Severity Reaction Last Updated Verified adhesive tape Allergy Intermediate "skin bubbles up" per patient 04/18/15 Yes I S O L A T I O N *CONTACT* Allergy Unknown 04/16/16 Yes codeine Adverse Reaction Intermediate jitters 04/19/15 Yes Vital Signs Vital Signs Date Time Temp Pulse Resp B/P (MAP) Pulse Ox O2 Delivery O2 Flow Rate FiO2 06/03/21 11:00 97.9 80 18 122/61 (81) 97 Room Air 97.9 06/03/21 10:48 3.0 Lab Results Laboratory Tests Test 06/02/21 07:50 06/02/21 08:16 06/02/21 15:45 06/02/21 16:54 Urine Collection Type Void Urine Color Yellow Urine Clarity Cloudy Urine pH 5.0 (<5.0-8.0) Urine Specific [place] >=1.030 (1.000-1.030) Urine Protein 30 mg/dL (NEG-TRACE) Urine Glucose (UA) >=1000 mg/dL (NEG) Urine Ketones (Stick) Negative mg/dL (NEG) Urine Blood Large (NEG) Urine Nitrite Negative (NEG) Urine Bilirubin Negative (NEG) Urine Urobilinogen Dipstick 0.2 mg/dL (0.2 mg/dL) Urine Leukocyte Esterase Moderate (NEG) Urine RBC 6-10 /HPF (0-2) Urine WBC 11-20 /HPF (0-4) Urine Squamous Epithelial Cells Mod /LPF Urine Bacteria Mod /HPF (0-FEW) Urine Yeast Present /HPF White Blood Count 13.2 x10^3/uL (4.0-11.0) Red Blood Count 4.60 x10^6/uL (3.50-5.40) Hemoglobin 11.5 g/dL (12.0-15.5) Hematocrit 35.6 % (36.0-47.0) Mean Corpuscular Volume 77 fL (79-100) Mean Corpuscular Hemoglobin 25 pg (25-35) Mean Corpuscular Hemoglobin Concent 33 g/dL (31-37) Red Cell Distribution Width 15.0 % (11.5-14.5) Platelet Count 422 x10^3/uL (140-400) Neutrophils (%) (Auto) 78 % (31-73) Lymphocytes (%) (Auto) 13 % (24-48) Monocytes (%) (Auto) 7 % (0-9) Eosinophils (%) (Auto) 1 % (0-3) Basophils (%) (Auto) 1 % (0-3) Neutrophils # (Auto) 10.3 x10^3/uL (1.8-7.7) Lymphocytes # (Auto) 1.7 x10^3/uL (1.0-4.8) Monocytes # (Auto) 0.9 x10^3/uL (0.0-1.1) Eosinophils # (Auto) 0.1 x10^3/uL (0.0-0.7) Basophils # (Auto) 0.1 x10^3/uL (0.0-0.2) Sodium Level 130 mmol/L (136-145) Potassium Level 4.1 mmol/L (3.5-5.1) Chloride Level 95 mmol/L (98-107) Carbon Dioxide Level 25 mmol/L (21-32) Anion Gap 10 (6-14) Blood Urea Nitrogen 16 mg/dL (7-20) Creatinine 0.9 mg/dL (0.6-1.0) Estimated GFR (Cockcroft-Gault) 65.2 BUN/Creatinine Ratio 18 (6-20) Glucose Level 435 mg/dL (70-99) Lactic Acid Level 1.2 mmol/L (0.4-2.0) Calcium Level 8.8 mg/dL (8.5-10.1) Total Bilirubin 0.4 mg/dL (0.2-1.0) Aspartate Amino Transf (AST/SGOT) 13 U/L (15-37) Alanine Aminotransferase (ALT/SGPT) 21 U/L (14-59) Alkaline Phosphatase 121 U/L (46-116) Total Protein 7.1 g/dL (6.4-8.2) Albumin 2.2 g/dL (3.4-5.0) Albumin/Globulin Ratio 0.4 (1.0-1.7) Glucose (Fingerstick) 379 mg/dL (70-99) 383 mg/dL (70-99) Test 06/02/21 21:20 06/03/21 07:24 06/03/21 12:06 Glucose (Fingerstick) 382 mg/dL (70-99) 338 mg/dL (70-99) 296 mg/dL (70-99) Laboratory Tests Test 06/02/21 21:20 06/03/21 07:24 06/03/21 12:06 Glucose (Fingerstick) 382 mg/dL (70-99) 338 mg/dL (70-99) 296 mg/dL (70-99) Brief Hospital Course Ms. Watkins is a 55 old female who presented with: Ventral hernia Abdominal wall abscess vs. seroma HTN DM2 UTI This patient is a 55-year-old female presented the emergency room today due to pain over her previous hernia surgical site. Reports that she started having increased nausea vomiting earlier this week. Also noticed that her hernia site was getting more painful and on the skin started becoming red. Is also gotten much more swollen according to her. Says she is unable to button her jeans due to the swelling. Patient had an initial cholecystectomy and hernia repair many years ago here looks like it may have been in 2015. She said she had multiple hernia surgeries that required mesh. Has had a handful done at according to her. Says last one was about 3 years ago where the mesh was completely removed. Has had no problems with the site until today. CT scan showing a large abdominal wall hernia. Also underlying abscess versus seroma. Surgery consulted in emergency room. 06/03: Afebrile, still with abdominal pain that is controlled with medication. Per IR, she apparently had spontaneous decompression of the previously seen abdominal fluid collection without significant residual cavity at the time of procedure, so no drain was left in place. Continue IV antibiotics. Given history of complicated infection with this prior mesh surgery, I believe ID has been consulted. 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 Discussed the risks of leaving AMA, including worsening pain, worsening infection, possible sepsis, which could lead to possible ; patient is A&O x3 and understands my concerns but at this time it is still her wish to leave AGAINST MEDICAL ADVICE. Discharge Information Condition at Discharge: Comment (Left AMA) Disposition/Orders: Other (Left AMA) Scheduled Cyclobenzaprine Hcl (Cyclobenzaprine Hcl) 10 Mg Tablet, 1 TAB PO TID, #30 Prescribed by: Maria Lopez APRN on 09/16/181844 Last Action: Continued on 06/02/211322 by RAHEEM SIMEON MD Diclofenac Potassium (Diclofenac Potassium) 50 Mg Tablet, 1 TAB PO BID, #20 Ref 0 Prescribed by: Maria Lopez APRN on 09/16/181844 Last Action: HELD on 06/02/211322 by RAHEEM SIMEON MD Doxycycline Hyclate (Doxycycline Hyclate) 100 Mg Capsule, 1 CAP PO BID for 10 Days, #20 Prescribed by: RADHA FINN APRN on 06/27/192027 Last Action: HELD on 06/02/211322 by RAHEEM SIMEON MD Glimepiride (Glimepiride) 4 Mg Tablet, 4 MG PO DAILY for Diabetes, (Reported) Entered as Reported by: AMRIT KEENE RN on 06/02/21 152 Last Action: New Order on 06/02/211524 by AMRIT KEENE RN Levofloxacin (Levaquin) 500 Mg Tablet, 1 TAB PO DAILY, #7 (Reported) Entered as Reported by: RIDDHI MARISCAL on 05/12/15 1513 Last Action: HELD on 06/02/211322 by RAHEEM SIMEON MD Lisinopril (Lisinopril) 2.5 Mg Tablet, 1 TAB PO DAILY, #30 Ref 5 (Reported) Entered as Reported by: BEVERLEY HENDERSON on 04/16/15 0858 Last Action: Converted on 06/02/211322 by RAHEEM SIMEON MD Metformin Hcl (Metformin Hcl) 1,000 Mg Tablet, 1 TAB PO BID for DM-II, #60 Ref 5 Prescribed by: MEENAKSHI MARQUEZ on 04/19/15 1344 Last Action: HELD on 06/02/211322 by RAHEEM SIMEON MD Sitagliptin Phos/Metformin Hcl (Janumet 50-1,000 Mg Tablet) 1 Each Tablet, 1 TAB PO BID for Diabetes, #60 Ref 5 (Reported) Entered as Reported by: AMRIT KEENE RN on 06/02/211524 Last Action: New Order on 06/02/211524 by AMRIT KEENE RN Justicifation of Admission Dx: Justifications for Admission: Justification of Admission Dx: Yes KARLOS ZAMAN MD Jun 03, 2021 17:59
[2021-06-03] MEDS ORDERED: INSULIN GLARGINE SYRINGE. SQ SCH (21:00)
[2021-06-03] MEDS ORDERED: LACTOBACILLUS RHAMNOSUS GG 1 CAPSULE. PO SCH (21:00)
== END 2021-06-03 15:15 | disposition left against medical advice (07) | DRG 603 ==
LOC: ER 07:28 → 4 NORTH 12:13
PROVIDERS: ADMIT Student in an Organized Health Care Education/Training Program; ATTEND Student in an Organized Health Care Education/Training Program
PROC: 0W9F30Z Drainage of Abdominal Wall with Drainage Device, Percutaneous Approach (ICD-10-PCS; principal; 2021-06-03)
DX: L02.211 Cutaneous abscess of abdominal wall (principal); N39.0 Urinary tract infection, site not specified; E11.9 Type 2 diabetes mellitus without complications; F41.9 Anxiety disorder, unspecified; K43.9 Ventral hernia without obstruction or gangrene; I10 Essential (primary) hypertension; Z53.29 Procedure and treatment not carried out because of patient's decision for other reasons; Z79.84 Long term (current) use of oral hypoglycemic drugs; Z79.899 Other long term (current) drug therapy; Z82.0 Family history of epilepsy and other diseases of the nervous system; Z83.3 Family history of diabetes mellitus; Z90.49 Acquired absence of other specified parts of digestive tract; Z88.5 Allergy status to narcotic agent; Z88.8 Allergy status to other drugs, medicaments and biological substances; Z91.041 Radiographic dye allergy status
CPT/HCPCS: 10009; 36415; 74177; 80053; 81001; 82962; 83605; 85025; 87040; 96361; 96374; 96375; C1892; J1815; J2270; J2405; J2543; J7030; Q9967; 99285-25; G0378